=== PATIENT | male | born 1985 | race Asian ===

== ENCOUNTER 2025-04-27 11:04 | Inpatient (IN) | payer OTHER, SELFPAY ==
[2025-04-26 22:21] VITALS: BP 110/74
[2025-04-26 22:40] LABS: Hematocrit 43.5 % (39.0-52.0); Hemoglobin 15.0 g/dL (13.0-18.0); Mean Corp Hgb Conc. 34.5 g/dL (33.0-37.0); Mean Corpuscular Volume 82.1 fL (80.0-94.0); Nucleated Red Blood Cells % 0 % (-); Platelet Count 167 10^3/uL (130-400); Red Cell Dist. Width 12.5 % (11.5-14.5)
[2025-04-26 23:02] LABS: ALT (SGPT) 20 U/L (0-50); AST (SGOT) 22 U/L (17-59); Albumin 4.4 g/dl (3.5-5.0); Alkaline Phosphatase 66 U/L (38-126); Blood Urea Nitrogen 15 mg/dl (9-20); Calcium 9.0 mg/dl (8.4-10.2); Carbon Dioxide 26 mmol/L (22-30); Chloride 107 mmol/L (98-107); Glucose 105 mg/dl (70-99); Lipase 46 U/L (23-300); Potassium 4.3 mmol/L (3.5-5.1); Sodium 140 mmol/L (135-145); Total Protein 7.1 g/dl (6.3-8.2); eGFR > 60.00
[2025-04-27] VITALS (14 sets, daily range): BP systolic 20–142; BP diastolic 52–75; BMI 28.5; BMI 28.6
[2025-04-27] MEDS: ZOFRAN 4 MG IV (01:08)
[2025-04-27] MEDS: NSS 1000 IV ×4 (01:08→22:37)
[2025-04-27] MEDS: DILAUDID 0.5 MG IV ×3 (01:08→15:12)
[2025-04-27] MEDS: ZOSYN 50 IV ×3 (01:09→17:09)
--- NOTE | 2025-04-27 01:13 | ED.GENMED ---
History of Present Illness
General
Chief Complaint: Abdominal Symptoms
Source: patient
Exam Limitations: none
Time Seen by Provider: 04/27/25 00:46
Nursing documentation reviewed up to this point in time: agreed with
History of Present Illness
History of Present Illness:
Patient is a 40-year-old male who presents to the emergency department for evaluation of right sided abdominal pain. He states he noticed vague abdominal pain around 6 PM this evening which was dull however became much more severe around 8:45 PM.
He states that pain migrated into his right lower quadrant where it has been constant. He denies any radiation of pain into his back. He has had multiple episodes of vomiting. He did eat dinner this evening although states he had to 'force down
the food' as his appetite was diminished.
He denies any known fever. He denies any diarrhea/constipation. No urinary symptoms.
Review of Systems
Review of Systems
Allergies reviewed?: Yes
All Other Systems: ROS reviewed and negative except as documented in HPI and ROS
Phy Exam
Physical Exam
Physical Exam:
Vitals: Patient's vital signs are stable. Afebrile
General: Patient is mildly uncomfortable secondary to pain. Nontoxic appearing
Skin: Warm and dry, no rashes or lesions
Head: Normocephalic, atraumatic
Eyes: Sclera nonicteric.
Throat: Protecting airway
Neck: Normal ROM, no cervical spine tenderness, no meningismus
Cardiac: Regular rate and rhythm, no murmurs.
Pulm: Normal respiratory effort, no wheezes, rales, rhonchi heard on exam
Abdomen: Abdomen soft. Focal tenderness in right lower quadrant McBurney's point. No rebound tenderness or guarding
Extremities: No evidence of cyanosis or edema
Neuro: AAOx3. Grossly intact.
Psychiatric: Normal affect.
Course
Orders/Labs/Results
Orders:
Orders
04/26/25 22:34
Complete Blood Count/With Diff Urgent
Comprehensive Metabolic Panel Urgent
Lipase Urgent
04/26/25 22:55
Abdomen/Pelvis w Contrast CT [CT Abd/pelvis W Iv Cont] Urgent
Comment:
Reason For Exam: RLQ pain N/V
04/27/25 00:59
0.9% Sodium Chloride 1000 ml [Nss] 1,000 ml IV BOLUS
HYDROmorphone [Dilaudid] 0.5 mg IV NOW STA
Ondansetron Injectable [Zofran] 4 mg IV NOW STA
Piperacillin/Tazo 3.375 Gram [Zosyn] 3.375 gram in 50 ml IV NOW
Abnormal Lab Results
04/26/25
22:34
Absolute Neuts (auto) 6.7 H 10^3/uL
(1.4-6.5)
Neutrophils % 75.3 H %
(42.2-75.2)
Lymphocytes % 18.1 L %
(20.5-51.1)
Glucose 105 H mg/dl
(70-99)
04/26/25 22:34
04/26/25 22:34
Vital Signs
Initial and Last Documented VS:
Initial Vital Signs
Temp Pulse Resp BP Pulse Ox
98.4 F 87 16 110/74 99
04/26/25 22:21 04/26/25 22:21 04/26/25 22:21 04/26/25 22:21 04/26/25 22:21
Last Documented Vital Signs
Temp Pulse Resp BP Pulse Ox
98.4 F 87 18 142/68 100
04/26/25 22:21 04/26/25 22:21 04/26/25 22:21 04/27/25 00:57 04/27/25 01:13
MDM/Problems Addressed
Differential Diagnosis Includes:
Not limited to: Acute appendicitis, perforated appendicitis, renal colic, acute cholecystitis, choledocholithiasis, biliary colic, etc.
MDM/Problems Addressed:
40-year-old male with somewhat acute onset right lower abdominal pain associated with nausea and vomiting this evening. No known fevers. No urinary symptoms. Vital stable on arrival�she is afebrile. On exam�patient mildly uncomfortable due to
pain although nontoxic appearing. Abdomen soft with focal tenderness McBurney's point. No rebound tenderness or guarding. Prior to my evaluation�labs were obtained without any clinically significant abnormalities. He has no leukocytosis. A CT
scan was ordered in triage which showed findings consistent with acute appendicitis with possible gangrenous changes. No CT evidence of perforation or abscess.
Patient given IV fluids, pain medicine, Zosyn in emergency department. Discussed with general surgeon, Dr. Greer who will admit to his service. Patient excepted to general surgery service in stable condition. Plan for or tomorrow. Discussed
with patient.
Chronic conditions affecting care:
N/A
Acute Exacerbation and/or Progression of Chronic Illness:
N/A
*Radiology
Radiology exam reviewed: radiology read reviewed
*Pulse Oximetry
SaO2: 100
Oxygen Mode of Delivery: Room air
Patient hypoxic: no
*EKG
Interpreted by ED Provider?: NA
*Hang Gliding Instructor Interpretation
Rate: Hang Gliding Instructor- N/A
*Critical Care Note
Total Time (30-74mins, 75-104mins- exclusive of procedures): Not Applicable
Patient Management
Discussion with other providers: Outside Deliverer (Case discussed with general surgery)
Escalation/DeEscalation of care consider admission/obs:
Admitted to general surgery on IV antibiotics, plan for OR tomorrow
ED Attending Note
-
Portions of this chart may have been created with voice recognition software.� Occasional wrong word or��sound alike� substitutions may have occurred due to the inherent limitations of voice recognition software.
Discharge Plan
Departure
Patient Disposition: Admit
Date of Disposition: 04/27/25
Time of Disposition: 01:04
Admit to doctor: Dr. Gerer
Presentation/result/management discussed w/ accepting MD/DO: General Surgery
Discharge Problem:
Acute appendicitis
Interventions
Interventions:
*General Assessment Last Done: 04/27/25 00:56
*Neglect/Abuse Screening Last Done: 04/27/25 00:56
*ED- Fall Risk Assessment Last Done: 04/26/25 22:21
*ED COVID-19 Vaccine History Last Done: 04/26/25 22:21
PJ-Hdrxhf-Qwjiesyxbj Assessment Last Done: 04/27/25 00:56
Discharge Date and Time
Print Language: MAORI
--- NOTE | 2025-04-27 01:44 | HPS.HSE ---
Addendum entered and electronically signed by Filiberto Dobson MD 04/27/25 10:48:
I saw and examined the patient independently.
The Furnace Brazer's note was reviewed and I agree with the note, assessment and plan except where noted below.
Comment: This is a 40-year-old male who presents with abdominal pain found to have acute appendicitis.
Will plan for laparoscopic appendectomy today.
N.p.o., IV fluids, IV antibiotics.
Risks/Benefits/Alternatives, expected postoperative course and possible complications (bleeding, infection, injury to surrounding structures, acute/chronic pain) discussed at length. Patient wishes to proceed with surgery. All questions answered.
Consent obtained.
I spent 60 minutes in total for the care of this patient today including direct patient care and counseling, reviewing labs, imaging, coordination of care, as well as documentation.
Original Note:
Family Physician
-
Family Physician: NOT KNOW UNKNOWN - PT DOES
Chief Complaint
-
Abdominal pain
History of Present Illness
a 40 years old male with no PMH, present in ER with a complain of abdominal pain that started around 6 pm with a stomach pain 6/10 of pain scale. Which get worse around 8pm, pain increased to 8-9/10 of pain scale and described as sharp pain that
localized to the RLQ. Pain associated with nausea and vomiting x1. He reported 4 bowels movement, 2 of them with loose stool. Denies sob, chest pain, urinary symptoms or any other symptoms. Patient had similar episodes on the end of February, pain lasted
for 72hrs which resolved after receiving tyleon and ibuprofen. Patient only taking Finasteride at home for hair loss.
Medical History
Past Medical History
Past Medical History: Reports None
Past Surgical History: Reports Other
Additional Past Surgical History:
Septoplasty
Social History
Tobacco: Non-smoker
Alcohol: Occasional
Drug: Marijuana
Personal: Other
Living: With Family
Employment: Employed
Family History
Family History: Not pertinent
Allergies / Home Medications
Allergies reflects when Allergies were last updated in [facility].
Home Medications with original date entered in [facility]
Allergy/Medication List:
Patient Allergies
Allergy/AdvReac Type Severity Reaction Status Date / Time
No Known Allergies Allergy Unverified 04/26/25 22:26
Home Medications Table - record
�Medication �Instructions �Recorded �Confirmed
finasteride 1 mg tablet 1 mg PO DAILY 04/27/25 04/27/25
Review of Systems
-
A 12 point ROS was completed and negative except as noted: Yes
EENT: Reports No Symptoms
Respiratory: Reports No Symptoms
Cardiac: Reports No Symptoms
Abdomen/GI: Reports Abdominal Pain, Nausea, Vomiting and Diarrhea
Musculoskeletal: Reports No Symptoms
Physical Exam
Vital Signs
Vital Signs
Temp Pulse Resp BP Pulse Ox
98.4 F 87 18 142/68 100
04/26/25 22:21 04/26/25 22:21 04/26/25 22:21 04/27/25 00:57 04/27/25 01:13
Physical Exam
General: No Apparent Distress
Respiratory: Clear
Cardiac: Regular Rhythm
GI: Soft, Normal Bowel Sounds and Tender (+McBurney's point)
Musculoskeletal: No Edema
Neuro: Awake and AO x 3
Laboratory Results
-
04/26/25 22:34
04/26/25 22:34
Laboratory Results
Total Bilirubin 0.6 mg/dl (0.2-1.3) 04/26/25 22:34
AST 22 U/L (17-59) 04/26/25 22:34
ALT 20 U/L (0-50) 04/26/25 22:34
Alkaline Phosphatase 66 U/L (38-126) 04/26/25 22:34
Lipase 46 U/L (23-300) 04/26/25 22:34
Data Reviewed
-
CT Scan: Discussed with Patient
Impression/Plan
-
CT abd/PLVs compatible with acute appendicitis.
The appendix is dilated to 1.2 cm and demonstrates a thickened slightly irregular wall with surrounding stranding and fluid. Given the appearance of the wall of the possibility of gangrenous change should be considered.
No free air or abscess.
IMPRESSION:
Acute appendicitis
PLAN:
Admit/observation/ tele/ (Dr. Greer/ surgery services)
NPO
IVF
Zosyn
analgesics as needed
antiemetics as needed
DVT prophylaxis: Lovenox sq
Code status : Full code.
--- NOTE | 2025-04-27 03:45 | PTCARENOTE ---
Pt arrived to room 415-02. Pt ambulated from stretcher to bed. Pt AAOx3, VSS. Pt c/o 01/15 RLQ pain. Pt oriented to room, call albrecht placed within reach.
--- NOTE | 2025-04-27 10:41 | CON.GS ---
Addendum entered and electronically signed by Filiberto Dobson MD 04/27/25 18:02:
I saw and examined the patient independently.
The resident's documentation was reviewed and I agree with the note, assessment and plan except where noted below.
Comment: This is a 40-year-old male who presents with a 1 day history of right lower quadrant pain concerning for acute appendicitis.
Will plan for a laparoscopic appendectomy.
N.p.o., IV fluids, IV antibiotics.
Risks/Benefits/Alternatives, expected postoperative course and possible complications (bleeding, infection, injury to surrounding structures, acute/chronic pain) discussed at length. Patient wishes to proceed with surgery. All questions answered.
Consent obtained.
I spent 60 minutes in total for the care of this patient today including direct patient care and counseling, reviewing labs, imaging, coordination of care, as well as documentation.
Original Note:
Medical History
-
Chief Complaint: RLQ pain and emesis
History of Present Illness:
40yoM no PMH here with abdominal pain that began as diffuse, achy pain that became sharp, localized RLQ pain. Pt reports having dinner yesterday with an onset of dull, achy pain at 6pm. He reports increase intensity and localization 9pm with a bout
of emesis.
Pt reports having an episode similar that resolved on its own in February that began as diffuse pain and localized to the RLQ. Denies prior surgeries. Due to the bout of emesis, unrelenting nature, and severity, pt presented to ED yesterday. Denies
fevers, chills, nausea or vomiting since last night. He reports that he has the same pain this morning but dilaudid has helped damper the severity.
Past Medical History
Past Surgical History: None
Allergies / Home Medications
Allergy/AdvReac Type Severity Reaction Status Date / Time
No Known Allergies Allergy Unverified 04/26/25 22:26
�Medication �Instructions �Recorded �Confirmed �Type
finasteride 1 mg tablet 1 mg PO DAILY 04/27/25 04/27/25 History
Review of Systems
-
History Source: Patient
All other systems: Negative unless noted
A 10 point review of systems was completed, and was negative except as per HPI.
Physical Exam
Vital Signs
Temp Pulse Resp BP Pulse Ox
99.3 F 79 18 106/52 98
04/27/25 07:00 04/27/25 07:00 04/27/25 07:00 04/27/25 07:00 04/27/25 08:25
04/26/25 04/27/25 04/28/25
06:59 06:59 06:59
Actual Weight 93.1 kg
Body Mass Index (BMI) 28.6
Lab Results
04/26/25 22:34
04/26/25 22:34
WBC 8.8 10^3/uL (4.8-10.8) 04/26/25 22:34
Hgb 15.0 g/dL (13.0-18.0) 04/26/25 22:34
Hct 43.5 % (39.0-52.0) 04/26/25 22:34
Plt Count 167 10^3/uL (130-400) 04/26/25 22:34
Abs Immat Gran (auto) 0.0 10^3/uL (0-0.05) 04/26/25 22:34
Neutrophils % 75.3 % (42.2-75.2) H 04/26/25 22:34
Physical Exam
General: Well Developed, Well Nourished, No Apparent Distress and Comfortable
HEENT: Normocephalic and Anicteric
Respiratory: Non Labored Respirations
Cardiac: Regular Rhythm
GI: Soft, Non Distended and Tender (diffusely tender with increased severity in RLQ)
Musculoskeletal: No Edema
Skin: Warm and Dry
Neuro: AO x 3 and Nonfocal/Grossly Intact
Psych: Calm
Assessment / Plan
-
40yoM with no pertinent PMH presenting with localized RLQ pain concerning for acute appendicitis. CT demonstrated enlarged appendix 11mm with fat stranding and surrounding edema indicative of appendicitis. Afebrile, vitals stable, normal WBC.
Plan:
OR today for appendectomy. Discussed dispo plans depend on findings in OR.
NPO until procedure
IV abx until source control. zosyn
Continue to manage pain with current regimen
--- NOTE | 2025-04-27 10:45 | W.SUR.PREOP ---
Pre-Operative Surgical Note
-
I have examined this patient prior to the performance of the scheduled procedure.
The patient's condition is unchanged from the time of the current History and
Physical and the patient is able to undergo the scheduled procedure.
[2025-04-27] MEDS: ZOSYN IV (11:15)
--- NOTE | 2025-04-27 12:50 | W.IMMPOSTOP ---
Surgical Immed Post Op Note
-
Primary Surgeon: Filiberto Dobson MD
Assisting Surgeon: None
Pre-op Diagnosis: Acute appendicitis
Post-op Diagnosis: Perforated appendicitis, intra-abdominal abscess
Procedure Performed:
1. Laparoscopic partial cecectomy
2. Drainage of an intra-abdominal abscess
Anesthesia Type: General
Specimen / Cultures:
1. Partial cecectomy
2. Intra-abdominal abscess for culture
Estimated Blood Loss: 11 cc
Complications: None
Operative Findings: Markedly inflamed perforated appendicitis with purulent peritonitis and pus extending from the right colic gutter all the way down to the pelvis. The base of the cecum/insertion of the appendix was markedly inflamed so our
umbilical 5 mm port site was upsized to a 12 and a partial cecectomy was performed using 2 fires of a 60 purple Endo NEO stapler. After suctioning out the visible pus and obtaining hemostasis, a 19 [place] round Jasiel drain was introduced through
the left lower quadrant port draped across the pelvis and up the right colic gutter. This was secured at the skin with a 2-0 nylon suture. His periumbilical port site had to be extended slightly for specimen extraction.
POST OP PLAN:
Imaging: None
Labs: Routine AM
Diet: Sips of clears for now, expect ileus
Analgesia: Tylenol 650mg q6 Salima, okay to start Toradol tomorrow, Dilaudid 0.5mg q2h PRN
Neuro/vascular checks: q4h
AC/AP: Hold Therapeutic AC, Ok for DVT PPx
Activity: Ad Amanda
Wound/Incisions/Drains: Routine, JAUN to bulb suction
Abx: Antibiotics x 4 days
Dispo: RNF, anticipate to hospital stay of 2-3 nights given degree of contamination. If his drain clears up, can be removed prior to discharge.
--- NOTE | 2025-04-27 12:55 | OR.RPT ---
Operative Report
Operative Report
Patient Name: Fish Kapadia
: 03/01/1979
Date of Operation: 04/27/2025
Preoperative Diagnosis: Acute Appendicitis
Postoperative Diagnosis: Perforated appendicitis, intra-abdominal abscess
Procedure(s):
1. Laparoscopic partial cecectomy
2. Drainage of an intra-abdominal abscess
Surgeon(s):
Dr. Dobson
Cloth Shrinking Machine Operator(s):
None
Anesthesia: General
Estimated Blood Loss: 11 cc
Urine Output: None
Drains/Lines/Implants: None
Specimens:
1. Appendix
HPI/Surgical Indications:
This is a 40-year-old male who presents with a 1 day history of abdominal pain. Exam, labs and imaging are consistent with acute appendicitis. Risks/Benefits/Alternatives were discussed at length, and the patient agreed to proceed with surgery.
Operative Findings: Markedly inflamed perforated appendicitis with purulent peritonitis and pus extending from the right colic gutter all the way down to the pelvis. The base of the cecum/insertion of the appendix was markedly inflamed so our
umbilical 5 mm port site was upsized to a 12 and a partial cecectomy was performed using 2 fires of a 60 purple Endo NEO stapler. After suctioning out the visible pus and obtaining hemostasis, a 19 [place] round Jasiel drain was introduced through
the left lower quadrant port draped across the pelvis and up the right colic gutter. This was secured at the skin with a 2-0 nylon suture. His periumbilical port site had to be extended slightly for specimen extraction.
Procedure Description:
The patient was placed in the supine position, with the left arm tucked, and general anesthesia was induced. The abdomen was prepared and draped in a sterile fashion so as to expose the entire abdomen. A surgical time out was taken. Abdominal access
was obtained with a 5 mm infra-umbilical Ana María Entry. After confirming no injury on entrance, two additional 5mm ports were placed in the suprapubic area just off midline and in the left lower quadrant. The patient was placed in Trendelenberg with
the right slightly up . The appendix was identified and with marked inflammation all the way to the base of the cecum which also appeared inflamed. There is also significant amount of pus along the right colic gutter extending into the pelvis
concerning for an intra-abdominal abscess. The surrounding tissues overlying the appendix were carefully peeled away and the mesoappendix was identified. This was divided using a laparoscopic bipolar energy device all the way to the base of the
cecum which was lifted off of the retroperitoneum and sidewall. Thankfully the terminal ileum inserted fairly high into the cecum and there was a space between the base of the cecum and TI to fit a stapler. The 5 mm umbilical port was upsized to a
12. A partial cecectomy was performed approximating healthy colonic tissue using 2 fires of a 60 purple stapler load on an Endo NEO. The abscess fluid was cultured. The specimen was placed in a specimen retrieval bag. Hemostasis was confirmed and
the ports were removed under visualization. A 19 Indonesian round Jasiel drain was introduced through the left lower quadrant port passed across the pelvis and up the right colic gutter. This was secured at the skin with a 2-0 nylon suture. The
specimen was passed off the field. The umbilical port was closed with a running 0-PDS and the skin for all ports was closed with interrupted monocryls and covered with dermabond. The patient was awoken from anesthesia in good condition and
transported to the recovery area.
I was the attending physician and performed the procedure with no assistance. I was present for all portions of the case.
Filiberto Dobson MD
--- NOTE | 2025-04-27 14:07 | PTCARENOTE ---
04/27- Patient transferred back to unit from PACU. Patient is AAOX3, lethargic, respirations WNL, RR=18. Lungs CTA BL. POX=99% on RA. Patient denies pain at this time. JAUN drain in LLQ with CDI surgical site and lappy sites CDI, fully
approximated, ecchymotic, clean. Reconnected Telemetry- currently NSR. Will continue to monitor.
--- NOTE | 2025-04-27 15:16 | CM ---
Patient seen bedside w/ spouse, initial assessment completed. Patient is a 40 year old male with no PMH, present in ER with a complain of abdominal pain. Found to have acute appendicitis. Laparoscopic partial cecectomy today.
Patient resides w/ spouse and their 3 children in a 2ST[facility], 1 step to enter. Patient is independent w/ ambulation, no device required. Independent w/ ADLs, no DME reported. No therapy hx.
Address, point of contact and insurance verified
PCP: Alvin Kapadia
Pharmacy: [facility]
Patient is admitted obs. OOBS form verbally reviewed, copy provided, copy on chart
Plan: Home, no needs likely
[2025-04-27] MEDS: LOVENOX 40 MG SC (17:09)
[2025-04-27] MEDS: DILAUDID 0.25 MG IV (19:43)
[2025-04-28] MEDS: DILAUDID 0.5 MG IV ×5 (00:10→20:00)
[2025-04-28] MEDS: ZOSYN 50 IV ×4 (00:10→17:02)
--- NOTE | 2025-04-28 03:42 | DOWNTIME ---
There was a [employer] Client Converting Operator Downtime on 04/28/2025 from 0100 to 04/28/2025 at 0220. Downtime documentation of patient's care, including medication administrations, has been reconciled in the electronic record per guidelines. Refer to the
patient's paper chart under the miscellaneous tab to see printed paper medication records and downtime forms.
[2025-04-28 03:57] VITALS: BP 118/71
[2025-04-28] MEDS: DILAUDID 0.25 MG IV (05:39)
[2025-04-28 07:07] VITALS: BP 105/57
--- NOTE | 2025-04-28 09:54 | W.PN.GS2 ---
Addendum entered and electronically signed by Filiberto Dobson MD 04/28/25 16:47:
I saw and examined the patient independently.
The resident's documentation was reviewed and I agree with the note, assessment and plan except where noted below.
Comment: This is a 40-year-old male postoperative day 1 from a laparoscopic partial cecectomy for perforated appendicitis. Expected ileus.
Pain control.
Antibiotics x 4 days.
N.p.o. for now. Await return of bowel function
IV fluids
Out of bed and ambulate as able.
Original Note:
Today's Communication / Plan
-
Plan discussed with attending.
Assessment / Plan
-
40yoM presented with acute appendicitis POD #1 appendectomy, abscess drainage, and cecectomy. Appendix was found to be perforated with pus to the R colic gutter. Pt continues to have pain and distention with concern of ileus. Cultures pending. Drain
output continues to be murky. Vitals stable. Afebrile.
Plan
Pain regimen adjusted. Tylenol and Toradol added. Adjustment of Dilaudid for severe break through pain.
Continue sips, expect ileus.
Cultures pending. Continue on IV abx zosyn 4 days. Continue to monitor drain output.
Encourage ambulation, currently pain-limited. Discussed with pt walking around once capable with goal of pain management first.
Subjective Data
-
Date of Service: April 28, 2025
40yoM POD #1 appendectomy, abscess drainage, and partial cecectomy. Pt reports pain limiting movement and continued bloating feeling. Denies nausea or vomiting. No BM or flatus.
Objective Data
-
Intake and Output
04/27/25 04/28/25 04/29/25
06:59 06:59 06:59
Intake Total 1660 / 1660
Output Total 1100 / 1100
Balance 560 / 560
Intake:
Oral fluids 400 / 400
IV fluids (Total) 1160 / 1160
Normosol 200 / 200
IV piggybacks 100 / 100
Output:
Drain Output (Total) 150 / 150
Abdomen León-Soares 150 / 150
Urine, Voided 950 / 950
Other:
Number of approximated MODERATE 1
amounts of urine
Vital Signs
Temp Pulse Resp BP Pulse Ox
97.7 F 68 20 105/57 97
04/28/25 07:07 04/28/25 07:07 04/28/25 07:07 04/28/25 07:07 04/28/25 07:07
Lab Results
04/26/25 22:34
04/26/25 22:34
Calcium 9.0 mg/dl (8.4-10.2) 04/26/25 22:34
Total Bilirubin 0.6 mg/dl (0.2-1.3) 04/26/25 22:34
AST 22 U/L (17-59) 04/26/25 22:34
ALT 20 U/L (0-50) 04/26/25 22:34
Alkaline Phosphatase 66 U/L (38-126) 04/26/25 22:34
Total Protein 7.1 g/dl (6.3-8.2) 04/26/25 22:34
Albumin 4.4 g/dl (3.5-5.0) 04/26/25 22:34
Physical Exam
-
General: Well Developed, Well Nourished, lying uncomfortable in bed
HEENT: Normocephalic and Anicteric
Respiratory: Non Labored Respirations
Cardiac: Regular Rhythm
GI: Distended, diffusely Tender. Most severe tenderness near umbilicus. Incisions clean, dry, and intact. Drain output 150ml total with 40ml overnight of red tinged, purulent drainage.
Musculoskeletal: No Edema
Skin: Warm and Dry
Neuro: AO x 3 and Nonfocal/Grossly Intact
Psych: Calm
[2025-04-28] MEDS: TYLENOL 1000 MG PO ×2 (11:36→17:02)
[2025-04-28] MEDS: TORADOL 30 MG IV ×2 (11:37→17:01)
[2025-04-28 11:40] VITALS: BP 116/69
[2025-04-28] MEDS: NSS 1000 IV (14:09)
[2025-04-28 15:15] VITALS: BP 118/68
[2025-04-28] MEDS: LOVENOX 40 MG SC (17:02)
[2025-04-28 19:41] VITALS: BP 123/71
[2025-04-28 23:13] VITALS: BP 146/78
[2025-04-29] MEDS: TYLENOL 1000 MG PO ×2 (00:11→05:45)
[2025-04-29] MEDS: ZOSYN 50 IV ×5 (00:11→23:16)
[2025-04-29] MEDS: TORADOL 30 MG IV ×5 (00:12→23:16)
[2025-04-29 04:01] VITALS: BP 132/79
[2025-04-29] MEDS: NSS 1000 IV (05:45)
--- NOTE | 2025-04-29 05:57 | PTCARENOTE ---
Pt reports passing 'a lot' of flatulence over night. JAUN with 50cc output of sanguineous// cloudy, yellow/ green output. JAUN site dry/ intact. Pt reports discomfort RLQ and around umbilicus.
[2025-04-29 07:15] VITALS: BP 125/70
[2025-04-29 11:17] VITALS: BP 131/77
--- NOTE | 2025-04-29 11:51 | W.PN.GS2 ---
Addendum entered and electronically signed by Filiberto Dobson MD 04/29/25 14:24:
I saw and examined the patient independently.
The resident's documentation was reviewed and I agree with the note, assessment and plan except where noted below.
Comment: This is a 40-year-old male postoperative day 2 from a partial cecectomy for perforated appendicitis with drain placement. Improving clinically.
Advancing to clears.
Antibiotics x 4 days.
Continue JAUN to bulb suction.
Pain control.
Out of bed and ambulate as able.
Original Note:
Today's Communication / Plan
-
Plan reviewed with attending
Assessment / Plan
-
40yoM presented with acute appendicitis POD #1 s/p partial cecectomy and appendectomy. Appendix was found to be perforated with pus to the R colic gutter. Drain output continues to be murky. Vitals stable. Afebrile. Pain is better controlled and
ileus seems resolved with passing gas and reduction in pain levels.
Plan
Scheduled Tylenol and Toradol. PRN Dilaudid
Diet: Clears
Continue on IV abx zosyn 4 days. Continue to monitor drain output.
Encourage ambulation
Subjective Data
-
Date of Service: April 29, 2025
Mr Kapadia is feeling better this morning, reporting better pain control with incisional pain and R sided pain when he rolls to hsi side. He passed gas but no BM with improvement of his bloating feeling. Denies nausea, vomiting.
Objective Data
-
Intake and Output
04/28/25 04/29/25 04/30/25
06:59 06:59 06:59
Intake Total 1660 / 1660 2460 / 2460
Output Total 1100 / 1100 680 / 680
Balance 560 / 560 1780 / 1780
Intake:
Oral fluids 400 / 400 1400 / 1400
IV fluids (Total) 1160 / 1160 960 / 960
Normosol 200 / 200
IV piggybacks 100 / 100 100 / 100
Output:
Drain Output (Total) 150 / 150 80 / 80
Abdomen León-Soares 150 / 150 80 / 80
Urine, Voided 950 / 950 600 / 600
Other:
Number of approximated MODERATE 1 4
amounts of urine
Vital Signs
Temp Pulse Resp BP Pulse Ox
98.8 F 73 16 125/70 97
04/29/25 07:15 04/29/25 07:15 04/29/25 07:15 04/29/25 07:15 04/29/25 07:15
Lab Results
04/26/25 22:34
04/26/25 22:34
Calcium 9.0 mg/dl (8.4-10.2) 04/26/25 22:34
Total Bilirubin 0.6 mg/dl (0.2-1.3) 04/26/25 22:34
AST 22 U/L (17-59) 04/26/25 22:34
ALT 20 U/L (0-50) 04/26/25 22:34
Alkaline Phosphatase 66 U/L (38-126) 04/26/25 22:34
Total Protein 7.1 g/dl (6.3-8.2) 04/26/25 22:34
Albumin 4.4 g/dl (3.5-5.0) 04/26/25 22:34
Physical Exam
-
General: Well Developed, Well Nourished, standing in his room comfortably
HEENT: Normocephalic and Anicteric
Respiratory: Non Labored Respirations
Cardiac: Regular Rhythm
GI: Soft, distended, mildly Tender. Most severe tenderness near umbilicus. Incisions clean, dry, and intact. Drain output 80ml total with 50ml overnight of red tinged, purulent drainage.
Musculoskeletal: No Edema
Skin: Warm and Dry
Neuro: AO x 3 and Nonfocal/Grossly Intact
Psych: Calm
[2025-04-29] MEDS: TYLENOL 650 MG PO ×3 (12:16→23:16)
--- NOTE | 2025-04-29 13:55 | CM ---
Chart reviewed. Care ongoing.
Post op day 2 from a laparoscopic partial cecectomy for perforated appendicitis.
Cont IV abx (4 days)
Plan: Home, no needs when stable
[2025-04-29 15:10] VITALS: BP 139/93
[2025-04-29] MEDS: LOVENOX 40 MG SC (17:01)
[2025-04-29] MEDS: PEPCID 20 MG IV (23:15)
[2025-04-29] MEDS: NSS (PRESERVATIVE FREE) 8 ML IV (23:15)
[2025-04-29] MEDS: ZOFRAN 4 MG IV (23:16)
[2025-04-29 23:40] VITALS: BP 130/84
[2025-04-29] MEDS: MYLICON 80 MG PO (23:47)
[2025-04-30] MEDS: TORADOL 30 MG IV ×4 (05:42→23:05)
[2025-04-30] MEDS: ZOSYN 50 IV ×4 (05:43→23:05)
[2025-04-30] MEDS: TYLENOL 650 MG PO ×4 (05:43→23:05)
[2025-04-30 07:00] VITALS: BP 139/79
[2025-04-30] MEDS: MYLICON 80 MG PO ×2 (08:38→22:01)
--- NOTE | 2025-04-30 09:54 | W.PN.GS2 ---
Addendum entered and electronically signed by Filiberto Dobson MD 04/30/25 14:24:
I saw and examined the patient independently.
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
Comment: This is a 40-year-old male postoperative day 3 from a partial cecectomy for perforated appendicitis. Still awaiting robust return of bowel function. Overall, expected postoperative course.
Continue on clears
IV antibiotics D3/4, should not need any further antibiotics on discharge.
Pain control
Anticipate discharge once tolerating regular diet, this could be as early as tomorrow, if his drain output continues to decrease in the quality turns more serous, okay to remove prior to discharge.
Original Note:
Today's Communication / Plan
-
Plan reviewed with attending.
Assessment / Plan
-
40yoM POD #3 s/p partial cecectomy and appendectomy for perforated appendix and abscess. Drain output continues to decrease but murky. Vitals stable. Afebrile. Pain is well controlled. Due to episode of nausea yesterday, we will continue clears for
the day.
Plan
Scheduled Tylenol and Toradol. PRN Dilaudid
Diet: Clears
Continue on IV abx zosyn 4 days. Continue to monitor drain output.
Encourage ambulation
Subjective Data
-
Date of Service: April 30, 2025
Overnight, Mr. Kapadia had an episode of gas related pain and reflux that caused some dry heaving but no vomiting. The episode resolved with simethicone and zofran. No other nausea or vomiting. Pain is well managed. 3 BM yesterday. Ambulating well.
Objective Data
-
Intake and Output
04/29/25 04/30/25 05/01/25
06:59 06:59 06:59
Intake Total 2460 / 2460 960 / 960
Output Total 730 / 730 1070 / 1070
Balance 1730 / 1730 -110 / -110
Intake:
Oral fluids 1400 / 1400 960 / 960
IV fluids (Total) 960 / 960
IV piggybacks 100 / 100
Output:
Drain Output (Total) 130 / 130 70 / 70
Abdomen León-Soares 130 / 130 70 / 70
Urine, Voided 600 / 600 1000 / 1000
Other:
Number of approximated MODERATE 4 1
amounts of urine
Vital Signs
Temp Pulse Resp BP Pulse Ox
98.3 F 75 20 130/84 99
04/29/25 23:40 04/29/25 23:40 04/29/25 23:40 04/29/25 23:40 04/29/25 23:40
Lab Results
04/26/25 22:34
04/26/25 22:34
Calcium 9.0 mg/dl (8.4-10.2) 04/26/25 22:34
Total Bilirubin 0.6 mg/dl (0.2-1.3) 04/26/25 22:34
AST 22 U/L (17-59) 04/26/25 22:34
ALT 20 U/L (0-50) 04/26/25 22:34
Alkaline Phosphatase 66 U/L (38-126) 04/26/25 22:34
Total Protein 7.1 g/dl (6.3-8.2) 04/26/25 22:34
Albumin 4.4 g/dl (3.5-5.0) 04/26/25 22:34
Physical Exam
-
General: Well Developed, Well Nourished, standing in his room comfortably
HEENT: Normocephalic and Anicteric
Respiratory: Non Labored Respirations
Cardiac: Regular Rhythm
GI: Soft, mildly distended, non tender. Incisions clean, dry, and intact. Drain output 70ml total with 20ml overnight of red tinged, purulent drainage.
Musculoskeletal: No Edema
Skin: Warm and Dry
Neuro: AO x 3 and Nonfocal/Grossly Intact
Psych: Calm
[2025-04-30 15:00] VITALS: BP 126/82
[2025-04-30] MEDS: LOVENOX 40 MG SC (17:57)
[2025-04-30 23:45] VITALS: BP 129/73
[2025-05-01] MEDS: TYLENOL PO ×3 (05:42→12:11)
[2025-05-01] MEDS: TORADOL 30 MG IV (05:42)
[2025-05-01] MEDS: ZOSYN 50 IV ×2 (05:42→12:11)
[2025-05-01 07:59] VITALS: BP 138/81
--- NOTE | 2025-05-01 08:17 | W.PN.GS2 ---
Addendum entered and electronically signed by Immanuel Greer MD 05/01/25 12:36:
I was physically present and personally performed the castillo portions of the surgical evaluation and/or procedure with the resident. I discussed the findings, reviewed the resident�s note, and confirmed the medical decision-making. I provided direct
supervision as required and agree with the assessment and plan as documented with the following additions/corrections:
Improved. Ambulating, voiding, delmar PO, pain controlled. Incisions cdi, abd soft, nt, drain serous. Plan to complete final dose zosyn, pull drain and DC home today.
Original Note:
Today's Communication / Plan
-
Plan reviewed with attending.
Assessment / Plan
-
40yoM POD #4 s/p partial cecectomy and appendectomy for perforated appendix and abscess. Drain output decreased. Vitals stable. Afebrile. Pain is well controlled. Pt can be discharged once drain is pulled and last dose of abx given,
Plan
Scheduled Tylenol and Toradol. PRN Dilaudid
Diet: regular
Last day of abx. Drain output has decreased and can be pulled.
Encourage ambulation
Subjective Data
-
Date of Service: May 01, 2025
Mr. Kapadia reports feeling significant improvement upon waking up today compared to prior days. Denies nausea, vomiting, fever, chills. He reports voiding and BM appropriately with resolved bloating.
Objective Data
-
Intake and Output
04/30/25 05/01/25 05/02/25
06:59 06:59 06:59
Intake Total 960 / 960 1440 / 1440
Output Total 1070 / 1070
Balance -110 / -110 1425 / 1425
Intake:
Oral fluids 960 / 960 1440 / 1440
Output:
Drain Output (Total)
Abdomen León-Soares
Urine, Voided 1000 / 1000
Other:
Number of approximated MODERATE 1 3
amounts of urine
Vital Signs
Temp Pulse Resp BP Pulse Ox
98.1 F 50 18 138/81 97
05/01/25 07:59 05/01/25 07:59 05/01/25 07:59 05/01/25 07:59 05/01/25 07:59
Calcium 9.0 mg/dl (8.4-10.2) 04/26/25 22:34
Total Bilirubin 0.6 mg/dl (0.2-1.3) 04/26/25 22:34
AST 22 U/L (17-59) 04/26/25 22:34
ALT 20 U/L (0-50) 04/26/25 22:34
Alkaline Phosphatase 66 U/L (38-126) 04/26/25 22:34
Total Protein 7.1 g/dl (6.3-8.2) 04/26/25 22:34
Albumin 4.4 g/dl (3.5-5.0) 04/26/25 22:34
Physical Exam
-
General: Well Developed, Well Nourished, standing in his room comfortably
HEENT: Normocephalic and Anicteric
Respiratory: Non Labored Respirations
Cardiac: Regular Rhythm
GI: Soft, non distended, non tender. Incisions clean, dry, and intact. Drain output 15ml serosanguineous drainage.
Musculoskeletal: No Edema
Skin: Warm and Dry
Neuro: AO x 3 and Nonfocal/Grossly Intact
Psych: Calm
[2025-05-01 08:21] VITALS: BMI 28.6
[2025-05-01 08:46] LABS: Hematocrit 39.7 % (39.0-52.0); Hemoglobin 13.6 g/dL (13.0-18.0); Mean Corp Hgb Conc. 34.3 g/dL (33.0-37.0); Mean Corpuscular Volume 81.7 fL (80.0-94.0); Nucleated Red Blood Cells % 0 % (-); Platelet Count 195 10^3/uL (130-400); Red Cell Dist. Width 12.2 % (11.5-14.5)
[2025-05-01 09:29] LABS: Blood Urea Nitrogen 7 mg/dl (9-20); Calcium 8.3 mg/dl (8.4-10.2); Carbon Dioxide 25 mmol/L (22-30); Chloride 107 mmol/L (98-107); Estimated Creatinine Clearance 117 ml/min; Glucose 85 mg/dl (70-99); Potassium 3.7 mmol/L (3.5-5.1); Sodium 138 mmol/L (135-145); eGFR > 60.00
[2025-05-01] MEDS: TORADOL IV (12:11)
--- NOTE | 2025-05-01 12:36 | W.DS.TRANS ---
Addendum entered and electronically signed by ALISIA Gimenez 05/01/25 12:48:
dictated #[id number]
Original Note:
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
-
Discharge Instructions:
Discharge Diagnosis/Procedures Acute appendicitis. Laparoscopic partial
cecectomy
Diet As tolerated
Activity No strenuous activity
Bathing Restrictions OK to Shower
Wound Care Cover the site where your drain was with dry
gauze dressing or bandaid. Change daily and as
needed until drainage no longer present then ok
to leave site open to air.
Instructions:
Stand-Alone Forms:
Changes to Home Medications: No
Discharge Medications:
DC Medications w/original date entered in [employer]
acetaminophen 325 mg tablet 650 mg (2 x 325 mg) PO Q6HPRN PRN mild pain #14 tabs 04/27/25
finasteride 1 mg tablet 1 mg PO DAILY Hair loss prevention 04/27/25
amoxicillin 875 mg-potassium clavulanate 125 mg tablet 1 tab PO Q12 antibiotic #3 tabs 05/01/25
ibuprofen 200 mg tablet 400 - 600 mg (2 - 3 x 200 mg) PO Q6HPRN PRN moderate pain #1 tab 05/01/25
Home Medication Changes
Pending Results: No
--- NOTE | 2025-05-01 12:36 | W.DS.TRANS ---
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
-
Discharge Instructions:
Discharge Diagnosis/Procedures Acute appendicitis. Laparoscopic partial
cecectomy
Diet As tolerated
Activity No strenuous activity
Bathing Restrictions OK to Shower
Wound Care Cover the site where your drain was with dry
gauze dressing or bandaid. Change daily and as
needed until drainage no longer present then ok
to leave site open to air.
Instructions:
Stand-Alone Forms:
Changes to Home Medications: No
Discharge Medications:
DC Medications w/original date entered in [employer]
acetaminophen 325 mg tablet 650 mg (2 x 325 mg) PO Q6HPRN PRN mild pain #14 tabs 04/27/25
finasteride 1 mg tablet 1 mg PO DAILY Hair loss prevention 04/27/25
amoxicillin 875 mg-potassium clavulanate 125 mg tablet 1 tab PO Q12 antibiotic #3 tabs 05/01/25
ibuprofen 200 mg tablet 400 - 600 mg (2 - 3 x 200 mg) PO Q6HPRN PRN moderate pain #1 tab 05/01/25
Home Medication Changes
Pending Results: No
--- NOTE | 2025-05-01 12:48 | CM ---
Pt discharged to home no needs. Pt ambulating in [place] independently. 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
[2025-05-01 13:14] VITALS: BP 131/78
== END 2025-05-01 13:38 | disposition home or self-care (01) | DRG 330 ==
LOC: 4 WEST ACU 11:04
PROVIDERS: Emergency Medicine; ADMITTING PHYSICIAN Surgery; EMERGENCY PHYSICIAN Emergency Medicine; OTHER PHYSICIAN Surgery
PROC: 0DBH4ZZ Excision of Cecum, Percutaneous Endoscopic Approach (ICD-10-PCS; 2025-04-27)
PROC: 0W9G40Z Drainage of Peritoneal Cavity with Drainage Device, Percutaneous Endoscopic Approach (ICD-10-PCS; 2025-04-27)
DX: K35.211 Acute appendicitis with generalized peritonitis, with perforation and abscess (principal); K56.7 Ileus, unspecified
CPT/HCPCS: 74177; 80048; 80053; 83690; 85025; 87070; 87075; 87077; 87186; 87205; 88307; 93005; 96365; 96375; 99285; C1776; Q9967